=== PATIENT | male | born 1960 | race Caucasian/White ===

== ENCOUNTER 2019-04-07 12:23 | Emergency (ER) | payer BC, OTHER ==
[~2019-04-07] VITALS: Ht 182.9 cm; Wt 81.6 kg
[2019-04-07] MEDS ORDERED: ASPIRIN 81 MG CHEW (CHILDREN'S ASA) ONE (12:28)
[2019-04-07] MEDS ORDERED: NITROGLYCERIN 0.4 MG SL TABS BTL 25'S SL ONE (12:28)
--- NOTE | 2019-04-07 12:44 | ED Chest Pain ---
General Chief Complaint: Chest Pain Stated Complaint: CHEST PAIN Source: patient Exam Limitations: no limitations History of Present Illness Date Seen by Provider: Apr 07, 2019 Time Seen by Provider: 12:25 Initial Comments The patient presents by private conveyance to the ER with chief complaint he is having some chest pressure that he woke up with. 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 Carmichael on the . He says he still does not feel totally well and has had off-and-on pressure. He went back to the ER [facility] couple days ago and they told him that he was not having a heart attack and keep his follow-up appointment. He has some anxiety because his brother recently from a thoracic aortic aneurysm. He's been taking the Brilinta aspirin and other medications as prescribed. He has a history of high blood pressure, hyperlipidemia and quit smoking in the 90s. He does not use recreational drugs or other tobacco products. He quit drinking nearly 30 years ago. Pressure in his chest is mostly on the left breast. Not reproducible to direct palpation. No shortness of breath and cough history of lung disease fevers chills sweats nausea vomiting. He says is similar but not as intense as the pressure he experienced when he went in to [facility] and was subsequently given a stent. At that time the nitroglycerin did help his pressure. He has not taken any in the past week. Allergies and Home Medications Allergies Coded Allergies: doxycycline (Verified Allergy, Unknown, 04/07/19) Patient Home Medication List Home Medication List Reviewed: Yes Review of Systems Review of Systems Constitutional: No chills, No diaphoresis EENTM: No Blurred Vision, No Double Vision Respiratory: Denies Cough, Denies Shortness of Air Cardiovascular: See HPI, Chest Pain; Denies Edema, Denies Irregular Heart Rate, Denies Lightheadedness, Denies Palpitations, Denies Syncope Gastrointestinal: Denies Constipated, Denies Diarrhea, Denies Nausea Genitourinary: Denies Discharge, Denies Drainage Musculoskeletal: No back pain, No joint pain Past Neqfdul-Bseeby-Sozonh Hx Patient Social History Alcohol Use: Past History Recreational Drug Use: No Smoking Status: Former Smoker Type Used: Cigarettes Former Smoker, Quit: Mar 27, 1996 Recent Foreign Travel: No Contact w/Someone Who Travel: No Recent Hopitalizations: No Immunizations Up To Date Tetanus Booster (TDap): Unknown PED Vaccines UTD: Yes Seasonal Allergies Seasonal Allergies: No Past Medical History Surgeries: Yes Respiratory: No Cardiac: Yes Heart Attack, High Cholesterol, Hypertension Neurological: No Genitourinary: No Gastrointestinal: No Musculoskeletal: No Endocrine: Yes Hypothyroidsim HEENT: No Cancer: No Psychosocial: No Physical Exam Vital Signs Vital Signs - First Documented 04/07/19 12:25 Temp 98.2 Pulse 73 Resp 13 B/P (MAP) 140/105 (117) Pulse Ox 97 O2 Delivery Room Air Capillary Refill : Less Than 3 Seconds Height, Weight, BMI Height: '" Weight: lbs. oz. kg; BMI Method: General Appearance: WD/WN, Anxious HEENT: PERRL/EOMI, Pharynx Normal, Moist Mucous Membranes Neck: Full Range of Motion, Normal Inspection Respiratory: Chest Non Tender, Lungs Clear, Normal Breath Sounds, No Accessory Muscle Use, No Respiratory Distress Cardiovascular: Regular Rate, Rhythm, No Edema, Normal Peripheral Pulses Gastrointestinal: Normal Bowel Sounds, No Organomegaly, Non Tender, Soft Extremity: Normal Capillary Refill, Normal Inspection, No Pedal Edema Neurologic/Psychiatric: Alert, Oriented x3, No Motor/Sensory Deficits Skin: Normal Color, Warm/Dry Progress/Results/Core Measures Results/Orders Lab Results Laboratory Tests Test 04/07/19 12:30 04/07/19 15:28 Range/Units White Blood Count 7.3 4.3-11.0 10^3/uL Red Blood Count 5.21 4.35-5.85 10^6/uL Hemoglobin 15.0 13.3-17.7 G/DL Hematocrit 43 40-54 % Mean Corpuscular Volume 82 80-99 FL Mean Corpuscular Hemoglobin 29 25-34 PG Mean Corpuscular Hemoglobin Concent 35 32-36 G/DL Red Cell Distribution Width 13.5 10.0-14.5 % Platelet Count 243 130-400 10^3/uL Mean Platelet Volume 10.5 H 7.4-10.4 FL Neutrophils (%) (Auto) 66 42-75 % Lymphocytes (%) (Auto) 16 12-44 % Monocytes (%) (Auto) 10 0-12 % Eosinophils (%) (Auto) 7 0-10 % Basophils (%) (Auto) 1 0-10 % Neutrophils # (Auto) 4.9 1.8-7.8 X 10^3 Lymphocytes # (Auto) 1.2 1.0-4.0 X 10^3 Monocytes # (Auto) 0.7 0.0-1.0 X 10^3 Eosinophils # (Auto) 0.5 H 0.0-0.3 10^3/uL Basophils # (Auto) 0.1 0.0-0.1 10^3/uL Prothrombin Time 12.4 12.2-14.7 SEC INR Comment 0.9 0.8-1.4 Activated Partial Thromboplast Time 31 24-35 SEC Sodium Level 139 135-145 MMOL/L Potassium Level 4.4 3.6-5.0 MMOL/L Chloride Level 108 H 98-107 MMOL/L Carbon Dioxide Level 21 21-32 MMOL/L Anion Gap 10 5-14 MMOL/L Blood Urea Nitrogen 15 7-18 MG/DL Creatinine 0.87 0.60-1.30 MG/DL Estimat Glomerular Filtration Rate > 60 BUN/Creatinine Ratio 17 Glucose Level 97 70-105 MG/DL Calcium Level 9.7 8.5-10.1 MG/DL Corrected Calcium 9.3 8.5-10.1 MG/DL Magnesium Level 2.2 1.6-2.4 MG/DL Total Bilirubin 0.5 0.1-1.0 MG/DL Aspartate Amino Transf (AST/SGOT) 17 5-34 U/L Alanine Aminotransferase (ALT/SGPT) 23 0-55 U/L Alkaline Phosphatase 77 40-136 U/L Total Creatine Kinase 85 30-200 U/L Myoglobin 35.5 10.0-92.0 NG/ML Troponin I < 0.028 < 0.028 <0.028 NG/ML B-Type Natriuretic Peptide < 10.0 <100.0 PG/ML Total Protein 7.2 6.4-8.2 GM/DL Albumin 4.5 3.2-4.5 GM/DL My Orders Orders - NOLAN CHAMBERLAIN Continuous Ekg Monitoring (04/07/19 12:25) Ekg Tracing (04/07/19 12:25) Nitroglycerin 0.4 Mg Btl 25's (Nitrostat (04/07/19 12:28) Aspirin Chewable Tablet (Baby Aspirin Ch (04/07/19 12:28) Cbc With Automated Diff (04/07/19 12:40) Magnesium (04/07/19 12:40) Chest 1 View, Ap/Pa Only (04/07/19 12:40) Cardiac Profile 1 (04/07/19 12:40) Comprehensive Metabolic Panel (04/07/19 12:40) Myoglobin Serum (04/07/19 12:40) Protime With Inr (04/07/19 12:40) Partial Thromboplastin Time (04/07/19 12:40) O2 (04/07/19 12:40) Lipid Panel (04/08/19 06:00) Ed Iv/Invasive Line Start (04/07/19 12:40) BNP (04/07/19 12:40) Nitroglycerin 0.4 Mg Btl 25's (Nitrostat (04/07/19 12:45) Aspirin Chewable Tablet (Baby Aspirin Ch (04/07/19 12:45) Creatine Kinase (04/07/19 13:42) Ct Angio Chest W (04/07/19 14:07) Iohexol Injection (Omnipaque 350 Mg/Ml 1 (04/07/19 14:15) Received Contrast (Hold Metformin- Contr (04/07/19 14:15) Sodium Chloride Flush (Catheter Flush Sy (04/07/19 14:15) Ns (Ivpb) (Sodium Chloride 0.9% Ivpb Bag (04/07/19 14:15) Troponin I (04/07/19 15:20) Medications Given in ED Current Medications Medications Dose Ordered Sig/Danae Route Start Time Stop Time Status Last Admin Dose Admin Aspirin 243 mg ONCE ONCE PO 04/07/19 12:45 04/07/19 12:46 DC 04/07/19 12:45 243 MG Iohexol 100 ml ONCE ONCE IV 04/07/19 14:15 04/07/19 14:16 DC 04/07/19 14:40 85 ML Nitroglycerin 0.4 mg UD PRN SL 04/07/19 12:45 04/07/19 12:45 0.4 MG Sodium Chloride 10 ml NEEDED PRN IV 04/07/19 14:15 04/07/19 14:40 10 ML Sodium Chloride 100 ml ONCE ONCE IV 04/07/19 14:15 04/07/19 14:16 DC 04/07/19 14:40 80 ML Vital Signs/I&O 04/07/19 12:25 Temp 98.2 Pulse 73 Resp 13 B/P (MAP) 140/105 (117) Pulse Ox 97 O2 Delivery Room Air Progress Progress Note #1: Time: 12:44 Progress Note Aspirin, nitroglycerin, labs chest x-ray EKG. Dr. Martinez faxed over a note for cardiac catheterization 2 dated 04/01/19: Patient was single vessel coronary artery disease in the mid LAD involving the takeoff of the second diagonal branch. Treated with a drug eluding stent in high-pressure balloon inflation. Plan to continue dual antiplatelet therapy for one year for non-STEMI. Might consider the use of nitrates given vasospasm noted both on the radial artery and post intervention in the left anterior descending artery. Echocardiogram 03/31/[address] Martinez: Dilated aortic root 4.34 cm Normal ventricular function. Aortic regurgitation. Pulmonic and tricuspid regurgitation. Mild mitral regurgitation. Progress Note #2: Time: 13:59 Progress Note Initial troponin and BNP are negative. CPK pending. Consider possibility of a reaction to his Lipitor causing some muscle aches. Nontender and his thighs. Nitroglycerin did not help his chest pressure but it did bring his blood pr essure down low enough that we will not give him a second dose. Heart score 4 points. CPK is not elevated. He has a history of a dilated aortic root 4.34 cm on ultrasound. Plan to get a CT angiogram to rule out dissection. Progress Note #3: Time: 16:03 Progress Note No chest pressure at present. Delta troponin negative. Plan to follow up tomorrow at 11:[address] Carmichael in the clinic. Initial ECG Impression Date: Apr 07, 2019 Initial ECG Impression Time: 12:28 Initial ECG Rate: 66 Initial ECG Rhythm: Normal Sinus Initial ECG Intervals: Normal Initial ECG Impression: Normal, Nonspecific Changes Initial ECG Comparisson: No Previous ECG Available Comment Normal sinus rhythm with left ventricular hypertrophy. No clinically significant ST elevation or depression. Diagnostic Imaging Diagonstic Imaging: Xray Plain Films/CT/US/NM/MRI: chest (1v) Comments [facility] [place], [place] NAME: CLAUDIA MADDEN REC#: [id number] PT STATUS: REG ER : 1960 PHYSICIAN: NOLAN CHAMBERLAIN MD ADMIT DATE: 04/07/19/ER Draft Date of Exam:04/07/19 CHEST 1 VIEW, AP/PA ONLY INDICATION: Chest heaviness. History of recent cardiac stent placement. COMPARISON: None. FINDINGS: Single frontal view of the chest demonstrates normal heart size and pulmonary vascularity. The lungs are well aerated and clear. No large pleural effusion or pneumothorax is seen. The visualized osseous structures show no acute abnormalities. IMPRESSION: 1. No acute cardiopulmonary process. Dictated on workstation # [id number] Dict: 04/07/19 1301 Trans: 04/07/19 1304 [id number] Interpreted by: GABRIELE LIU MD Electronically signed by: Reviewed: Reviewed by Me Diagonstic Imaging: CT (angiogram) Plain Films/CT/US/NM/MRI: chest Comments NAME: CLAUDIA MADDEN [facility] REC#: [id number] PT STATUS: REG ER : 1960 PHYSICIAN: NOLAN CHAMBERLAIN MD ADMIT DATE: 04/07/19/ER Signed Date of Exam:04/07/19 CT ANGIO CHEST W PROCEDURE: CT angiography of the chest with contrast. TECHNIQUE: Multiple contiguous axial images were obtained through the chest after uneventful bolus administration of intravenous contrast. 3D reconstructed CTA MIP acquisitions were also performed. Auto Exposure Controls were utilized during the CT exam to meet ALARA standards for radiation dose reduction. INDICATION: Chest pain. FINDINGS: No comparison available. There is no pulmonary embolism. Heart size is normal. No pericardial effusion. Aorta is normal in caliber. There is no axillary, supraclavicular lymphadenopathy. Calcified mediastinal lymph nodes are in keeping with prior granulomatous infection. Limited views of the upper abdomen reveal a cyst in the left kidney. Extensive calcific granulomas in the lungs. No suspicious pulmonary nodules. No edema or pneumonia. No pleural effusion or pneumothorax. IMPRESSION: 1. No pulmonary embolism, clear lungs. Dictated by: Dictated on workstation # [id number] Dict: 04/07/19 1446 Trans: 04/07/19 1451 CVB [id number] Interpreted by: LUCILLE TINOCO MD Electronically signed by: LUCILLE TINOCO MD 04/07/19 1453 Reviewed: Reviewed by Me Consults : Consulting Physician: SAKINA YANCEY MD [facility] Consults Notes Discussed case lab EKG imaging and findings. Discuss the patient's desire not to stay in the hospital. If Delta troponin is negative and the patient is chest pain free then he would see the patient mom morning in the clinic. Departure Impression Primary Impression: Left chest pressure Disposition: HOME, SELF-CARE Condition: Stable Departure-Patient Inst. Decision time for Depature: 16:03 Referrals: DEBORAH CARMICHAEL MD Patient Instructions: Chest Pain (DC) Add. Discharge Instructions: Plan to follow up with Dr. Carmichael in the clinic at 11:20 AM tomorrow. If you have significant chest pain, shortness of breath or other worrisome symptoms return to the nearest ER. All discharge instructions reviewed with patient and/or family. Voiced understanding. Work/School Note: Work Release Form Date Seen in the Emergency Department: Apr 07, 2019 Return to Work: Apr 09, 2019 Restrictions: No Restrictions NOLAN CHAMBERLAIN Apr 07, 2019 12:44
[2019-04-07] MEDS ORDERED: NITROGLYCERIN 0.4 MG SL TABS BTL 25'S SL PRN (12:45)
[2019-04-07] MEDS ORDERED: ASPIRIN 81 MG CHEW (CHILDREN'S ASA) PO ONE (12:45)
[2019-04-07 12:51] LABS: BASOPHILS # (AUTO) 0.1 10^3/uL (0.0-0.1); BASOPHILS % (AUTO) 1 % (0-10); EOSINOPHILS # (AUTO) 0.5 10^3/uL (0.0-0.3); EOSINOPHILS % (AUTO) 7 % (0-10); HEMATOCRIT 43 % (40-54); LYMPHOCYTES # (AUTO) 1.2 X 10^3 (1.0-4.0); LYMPHOCYTES % (AUTO) 16 % (12-44); MEAN CORPUSCULAR HEMOGLOBIN 29 PG (25-34); MEAN CORPUSCULAR HGB CONC 35 G/DL (32-36); MEAN CORPUSCULAR VOLUME 82 FL (80-99); MEAN PLATELET VOLUME 10.5 FL (7.4-10.4); MONOCYTES # (AUTO) 0.7 X 10^3 (0.0-1.0); MONOCYTES % (AUTO) 10 % (0-12); NEUTROPHILS # (AUTO) 4.9 X 10^3 (1.8-7.8); NEUTROPHILS % (AUTO) 66 % (42-75); PLATELET COUNT 243 10^3/uL (130-400); RED CELL DISTRIBUTION WIDTH 13.5 % (10.0-14.5); WHITE BLOOD COUNT 7.3 10^3/uL (4.3-11.0)
[2019-04-07 12:56] LABS: INR 0.9 (0.8-1.4); PROTHROMBIN TIME PATIENT 12.4 SEC (12.2-14.7)
--- NOTE | 2019-04-07 13:05 | Diagnostic Imaging Report ---
INDICATION: Chest heaviness. History of recent cardiac stent placement. COMPARISON: None. FINDINGS: Single frontal view of the chest demonstrates normal heart size and pulmonary vascularity. The lungs are well aerated and clear. No large pleural effusion or pneumothorax is seen. The visualized osseous structures show no acute abnormalities. IMPRESSION: 1. No acute cardiopulmonary process. Dictated by: Dictated on workstation # [id number]
[2019-04-07 13:06] LABS: ALANINE AMINOTRANSFERASE 23 U/L (0-55); ALBUMIN 4.5 GM/DL (3.2-4.5); ALKALINE PHOSPHATASE 77 U/L (40-136); BILIRUBIN,TOTAL 0.5 MG/DL (0.1-1.0); BUN/CREATININE RATIO 17; CALCIUM 9.7 MG/DL (8.5-10.1); CARBON DIOXIDE 21 MMOL/L (21-32); CHLORIDE 108 MMOL/L (98-107); CREATININE SERUM 0.87 MG/DL (0.60-1.30); GFR ESTIMATED > 60; GLUCOSE 97 MG/DL (70-105); MAGNESIUM 2.2 MG/DL (1.6-2.4); POTASSIUM 4.4 MMOL/L (3.6-5.0); SODIUM 139 MMOL/L (135-145); TOTAL PROTEIN 7.2 GM/DL (6.4-8.2)
[2019-04-07] MEDS ORDERED: CATHETER FLUSH 10 ML SYR IV PRN (14:15)
[2019-04-07] MEDS ORDERED: HOLD METFORMIN - RECEIVED CONTRAST 20 ML VIAL IV SCH (14:15)
[2019-04-07] MEDS ORDERED: IOHEXOL 350 MG/ML 100 ML (OMNIPAQUE 350) VIAL IV ONE (14:15)
[2019-04-07] MEDS ORDERED: NS 100 ML (IVPB) BAG IV ONE (14:15)
--- NOTE | 2019-04-07 14:51 | Diagnostic Imaging Report ---
PROCEDURE: CT angiography of the chest with contrast. TECHNIQUE: Multiple contiguous axial images were obtained through the chest after uneventful bolus administration of intravenous contrast. 3D reconstructed CTA MIP acquisitions were also performed. Auto Exposure Controls were utilized during the CT exam to meet ALARA standards for radiation dose reduction. INDICATION: Chest pain. FINDINGS: No comparison available. There is no pulmonary embolism. Heart size is normal. No pericardial effusion. Aorta is normal in caliber. There is no axillary, supraclavicular lymphadenopathy. Calcified mediastinal lymph nodes are in keeping with prior granulomatous infection. Limited views of the upper abdomen reveal a cyst in the left kidney. Extensive calcific granulomas in the lungs. No suspicious pulmonary nodules. No edema or pneumonia. No pleural effusion or pneumothorax. IMPRESSION: 1. No pulmonary embolism, clear lungs. Dictated by: Dictated on workstation # [id number]
[2019-04-07 16:15] VITALS: BP 130/86
== END 2019-04-07 16:15 | disposition home or self-care (01) ==
LOC: EDUNIT# 12:23 → ER 12:25
DX: R07.89 Other chest pain (principal); I10 Essential (primary) hypertension; I25.2 Old myocardial infarction; E78.00 Pure hypercholesterolemia, unspecified; F41.9 Anxiety disorder, unspecified; E03.9 Hypothyroidism, unspecified; Z95.5 Presence of coronary angioplasty implant and graft; Z79.82 Long term (current) use of aspirin; Z87.891 Personal history of nicotine dependence; Z88.1 Allergy status to other antibiotic agents
CPT/HCPCS: 36415; 71045; 71275; 80053; 82550; 83735; 83874; 83880; 84484; 85025; 85610; 85730; 93005

== ENCOUNTER → 2019-05-14 | Outpatient (CLI) | payer BC ==
[~2019-05-14] MED LIST: CATHETER FLUSH 10 ML SYR IV PRN
[2019-05-14 09:13] VITALS: BP 125/88
[2019-05-14 09:24] VITALS: BP 171/83
--- NOTE | 2019-05-14 12:29 | STRESS TEST ---
DATE OF SERVICE: 05/14/2019 EXERCISE MYOVIEW STRESS TEST REPORT Baseline heart rate is 57, baseline blood pressure 131/84. Baseline EKG is sinus rhythm with no ischemic changes. In summary, the patient was injected with 10.82 mCi of technetium-99 Myoview and the resting images were obtained. Then, the patient started exercising with a baseline heart rate, blood pressure and EKG mentioned above, was able to exercise for a total of 8 minutes 30 seconds on standard Nagi protocol, achieving maximum heart rate of 138. With peak exercise level, EKG was showing minimal nondiagnostic changes. The patient was injected with 30.1 mCi of technetium-99 Myoview. Throughout the test, there was no significant abnormality. During recovery, heart rate and blood pressure returned to baseline. The resting and stress images were reviewed and compared in the short axis, horizontal long axis, and vertical long axis views. Review of the images showed typical male pattern with no significant ischemia or infarction on SPECT images. SSS 0. TID value 0.92. On the gated images, the left ventricle appeared to be normal size with normal contractility. Calculated ejection fraction 53%. CONCLUSION: 1. Good exercise tolerance, a total of 8 minutes 30 seconds on standard Nagi protocol, total of 10.3 METS achieving 85% of maximum expected heart rate. 2. Appropriate heart rate and blood pressure response to exercise returned to baseline during recovery. 3. Minimal nondiagnostic EKG changes with exercise returned to baseline during recovery. 4. Typical male pattern with no significant ischemia or infarction on SPECT images. 5. Normal left ventricular size with normal contractility. Calculated ejection fraction 53%. Job ID: [id number] DocumentID: [id number] Dictated Date: 05/14/2019 11:45:37 Felled Seam Operator Date: 05/14/2019 12:29:20 Dictated By: DEBORAH BOURGEOIS MD
== END ==
LOC: CARD 07:01
PROVIDERS: ATTEND Physician Assistant
DX: I25.10 Atherosclerotic heart disease of native coronary artery without angina pectoris (principal); I77.819 Aortic ectasia, unspecified site; I25.2 Old myocardial infarction; I37.1 Nonrheumatic pulmonary valve insufficiency
CPT/HCPCS: 78452; 93017

== ENCOUNTER → 2020-03-15 | Outpatient (CLI) | payer BC | LOC: CARD 09:00 | PROVIDERS: ATTEND Internal Medicine Cardiovascular Disease | DX: I08.1 Rheumatic disorders of both mitral and tricuspid valves (principal); I25.10 Atherosclerotic heart disease of native coronary artery without angina pectoris | CPT/HCPCS: 93306 ==

== ENCOUNTER 2022-04-07 15:56 | Observation (INO) | payer BC ==
[~2022-04-07] VITALS: Ht 182 cm; Wt 93.0 kg
[2022-04-07 16:14] LABS: BASOPHILS # (AUTO) 0.1 10^3/uL (0.0-0.1); BASOPHILS % (AUTO) 1 % (0-10); EOSINOPHILS # (AUTO) 0.3 10^3/uL (0.0-0.3); EOSINOPHILS % (AUTO) 2 % (0-10); HEMATOCRIT 42 % (40-54); HEMOGLOBIN 14.8 g/dL (13.3-17.7); LYMPHOCYTES # (AUTO) 1.3 10^3/uL (1.0-4.0); LYMPHOCYTES % (AUTO) 9 % (12-44); MEAN CORPUSCULAR HEMOGLOBIN 29 pg (25-34); MEAN CORPUSCULAR HGB CONC 36 g/dL (32-36); MEAN CORPUSCULAR VOLUME 83 fL (80-99); MEAN PLATELET VOLUME 9.9 fL (9.0-12.2); MONOCYTES # (AUTO) 1.1 10^3/uL (0.0-1.0); MONOCYTES % (AUTO) 8 % (0-12); NEUTROPHILS # (AUTO) 11.3 10^3/uL (1.8-7.8); NEUTROPHILS % (AUTO) 80 % (42-75); PLATELET COUNT 214 10^3/uL (130-400); WHITE BLOOD COUNT 14.1 10^3/uL (4.3-11.0)
[2022-04-07 16:26] LABS: ALBUMIN 4.5 GM/DL (3.2-4.5); POTASSIUM 4.4 MMOL/L (3.6-5.0)
[2022-04-07 16:27] LABS: CALCIUM 9.8 MG/DL (8.5-10.1)
[2022-04-07 16:29] LABS: TOTAL PROTEIN 7.2 GM/DL (6.4-8.2)
[2022-04-07 16:30] LABS: BILIRUBIN,TOTAL 1.2 MG/DL (0.1-1.0)
--- NOTE | 2022-04-07 16:31 | Diagnostic Imaging Report ---
EXAMINATION: Chest, one view. HISTORY: Chest pain. COMPARISON: 04/07/2019. FINDINGS: The lung volumes are normal. No focal consolidation is seen. No large pleural effusion or pneumothorax is seen. The cardiomediastinal silhouette is normal in size and contour. No acute osseous abnormality is seen. IMPRESSION: 1. No acute pleural-parenchymal process. Dictated by: Dictated on workstation # [id number]
[2022-04-07 16:32] LABS: CREATININE SERUM 1.42 MG/DL (0.60-1.30)
[2022-04-07 16:33] LABS: PROTHROMBIN TIME PATIENT 13.3 SEC (12.2-14.7)
[2022-04-07 16:35] LABS: MAGNESIUM 2.2 MG/DL (1.6-2.4)
[2022-04-07 16:56] LABS: BASOPHILS % (MANUAL) 1 %; LYMPHOCYTES % (MANUAL) 6 %; MONOCYTES % (MANUAL) 7 %; NEUTROPHILS % (MANUAL) 86 %; RBC MORPH NORMAL
[2022-04-07] MEDS ORDERED: ASPIRIN 81 MG CHEW (CHILDREN'S ASA) PO ONE (17:15)
--- NOTE | 2022-04-07 19:11 | ED Chest Pain ---
General Chief Complaint: Chest Pain Stated Complaint: CHEST DISCOMFORT Source: patient Exam Limitations: no limitations History of Present Illness Date Seen by Provider: Apr 07, 2022 Time Seen by Provider: 16:06 Initial Comments This 61-year-old gentleman presents to the emergency room with complaints of a heaviness on his chest. 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 He developed a pain in his back, between his shoulder blades, and a heaviness on his chest. He became lightheaded and dizzy upon rising at that time after he tried to rest. His chest continued to feel heavy on the way here. Pain was 6/10 at its worst and is now 4 out of 10. He has history of stent placement in 2019. A subsequent stress test was negative. Vital signs are stable. He has taken aspirin 162 mg. Nitroglycerin is not being given at this time due to blood pressure of only 110s. Dr. Carmichael is his primary bingo checker. His primary care provider is Dr. Henriquez at the [facility] in [place], [place]. Patient is used to difficult labor and harsh conditions, but this event frightened him. Allergies and Home Medications Allergies Coded Allergies: doxycycline (Verified Allergy, Unknown, 04/07/19) Patient Home Medication List Home Medication List Reviewed: Yes Review of Systems Review of Systems Constitutional: see HPI, diaphoresis, dizziness, weakness EENTM: No Symptoms Reported Respiratory: No Symptoms Reported Cardiovascular: See HPI Gastrointestinal: Nausea Genitourinary: No Symptoms Reported Musculoskeletal: no symptoms reported Skin: no symptoms reported Psychiatric/Neurological: See HPI Endocrine: No Symptoms Reported Hematologic/Lymphatic: No Symptoms Reported Past Nrwrolp-Mqtiot-Lxqlil Hx Patient Social History Tobacco Use?: No Use of E-Cig and/or Vaping dev: No Substance use?: No Alcohol Use?: No Immunizations Up To Date Tetanus Booster (TDap): Unknown PED Vaccines UTD: Yes Seasonal Allergies Seasonal Allergies: No Past Medical History Surgeries: Yes Coronary Stent Respiratory: No Cardiac: Yes Coronary Artery Disease, Heart Attack, High Cholesterol, Hypertension Neurological: No Genitourinary: No Gastrointestinal: No Musculoskeletal: No Endocrine: Yes Hypothyroidsim HEENT: No Cancer: No Psychosocial: No Integumentary: No Physical Exam Vital Signs Vital Signs - First Documented 04/07/22 15:58 Pulse 78 Resp 13 B/P (MAP) 129/77 (94) Pulse Ox 95 O2 Delivery Room Air Capillary Refill : Height, Weight, BMI Height: 6'0" Weight: 180lbs. oz. 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 Norm as Tested Skin: Normal Color, Warm/Dry Progress/Results/Core Measures Results/Orders Lab Results Laboratory Tests Test 04/07/22 16:04 04/07/22 18:20 Range/Units White Blood Count 14.1 H 4.3-11.0 10^3/uL Red Blood Count 5.03 4.30-5.52 10^6/uL Hemoglobin 14.8 13.3-17.7 g/dL Hematocrit 42 40-54 % Mean Corpuscular Volume 83 80-99 fL Mean Corpuscular Hemoglobin 29 25-34 pg Mean Corpuscular Hemoglobin Concent 36 32-36 g/dL Red Cell Distribution Width 12.8 10.0-14.5 % Platelet Count 214 130-400 10^3/uL Mean Platelet Volume 9.9 9.0-12.2 fL Immature Granulocyte % (Auto) 1 % Neutrophils (%) (Auto) 80 H 42-75 % Lymphocytes (%) (Auto) 9 L 12-44 % Monocytes (%) (Auto) 8 0-12 % Eosinophils (%) (Auto) 2 0-10 % Basophils (%) (Auto) 1 0-10 % Neutrophils # (Auto) 11.3 H 1.8-7.8 10^3/uL Lymphocytes # (Auto) 1.3 1.0-4.0 10^3/uL Monocytes # (Auto) 1.1 H 0.0-1.0 10^3/uL Eosinophils # (Auto) 0.3 0.0-0.3 10^3/uL Basophils # (Auto) 0.1 0.0-0.1 10^3/uL Immature Granulocyte # (Auto) 0.1 0.0-0.1 10^3/uL Neutrophils % (Manual) 86 % Lymphocytes % (Manual) 6 % Monocytes % (Manual) 7 % Basophils % (Manual) 1 % Blood Morphology Comment NORMAL Prothrombin Time 13.3 12.2-14.7 SEC INR Comment 1.0 0.8-1.4 Activated Partial Thromboplast Time 29 24-35 SEC Sodium Level 138 135-145 MMOL/L Potassium Level 4.4 3.6-5.0 MMOL/L Chloride Level 108 H 98-107 MMOL/L Carbon Dioxide Level 20 L 21-32 MMOL/L Anion Gap 10 5-14 MMOL/L Blood Urea Nitrogen 16 7-18 MG/DL Creatinine 1.42 H 0.60-1.30 MG/DL Estimat Glomerular Filtration Rate 57 BUN/Creatinine Ratio 11 Glucose Level 99 70-105 MG/DL Calcium Level 9.8 8.5-10.1 MG/DL Corrected Calcium 9.4 8.5-10.1 MG/DL Magnesium Level 2.2 1.6-2.4 MG/DL Total Bilirubin 1.2 H 0.1-1.0 MG/DL Aspartate Amino Transf (AST/SGOT) 26 5-34 U/L Alanine Aminotransferase (ALT/SGPT) 34 0-55 U/L Alkaline Phosphatase 89 40-136 U/L Myoglobin 181.8 H 10.0-92.0 NG/ML Troponin I < 0.028 < 0.028 <0.028 NG/ML Total Protein 7.2 6.4-8.2 GM/DL Albumin 4.5 3.2-4.5 GM/DL My Orders Orders - ELENO HARRELL MD Ekg Tracing (04/07/22 16:06) Cbc With Automated Diff (04/07/22 16:07) Magnesium (04/07/22 16:07) Chest 1 View, Ap/Pa Only (04/07/22 16:07) Comprehensive Metabolic Panel (04/07/22 16:07) Myoglobin Serum (04/07/22 16:07) Protime With Inr (04/07/22 16:07) Partial Thromboplastin Time (04/07/22 16:07) O2 (04/07/22 16:07) Monitor-Rhythm Ecg Trace Only (04/07/22 16:07) Lipid Panel (04/08/22 06:00) Ed Iv/Invasive Line Start (04/07/22 16:07) Troponin I [place] (04/07/22 16:07) Manual Differential (04/07/22 16:04) Aspirin Chewable Tablet (Baby Aspirin Ch (04/07/22 17:15) Troponin I [place] (04/07/22 17:01) Ekg Tracing (04/07/22 19:01) Code/Resuscitation (04/07/22 19:46) Medications Given in ED Current Medications Medications Dose Ordered Sig/Danae Route Start Time Stop Time Status Last Admin Dose Admin Aspirin 162 mg ONCE ONCE PO 04/07/22 17:15 04/07/22 17:16 DC 04/07/22 17:40 162 MG Vital Signs/I&O 04/07/22 15:58 Pulse 78 Resp 13 B/P (MAP) 129/77 (94) Pulse Ox 95 O2 Delivery Room Air Blood Pressure Mean: 94 Progress Progress Note : Time: 19:07 Progress Note Patient had taken aspirin 162 mg at home. We gave him an additional 162 mg. Nitroglycerin was not administered as his blood pressure was marginal initially. He received a liter of IV fluid. Initial work-up was negative for ischemic ST changes or elevated troponin. Repeat after 2 hours is pending. Patient reports his chest heaviness completely resolved. Review of chart reveals a negative stress test with Dr. Carmichael in 2019. EKG #1: EKG Time: 16:07 Rate: 74 Rhythm: Normal Sinus Comment Sinus rhythm with no ST elevation or depression. Right bundle branch block. No axis deviation. EKG #2: EKG Time: 19:14 Rate: 64 Rhythm: Normal Sinus Comment Normal sinus rhythm with no ST elevation or depression. Right bundle branch block. No axis deviation. Unchanged from earlier today Diagnostic Imaging Diagonstic Imaging: Xray Plain Films/CT/US/NM/MRI: chest Comments NAME: CLAUDIA MADDEN [facility] REC#: [id number] PT STATUS: REG ER : 1960 PHYSICIAN: ELENO HARRELL MD ADMIT DATE: 04/07/22/ER Signed Date of Exam:04/07/22 CHEST 1 VIEW, AP/PA ONLY EXAMINATION: Chest, one view. HISTORY: Chest pain. COMPARISON: 04/07/2019. FINDINGS: The lung volumes are normal. No focal consolidation is seen. No large pleural effusion or pneumothorax is seen. The cardiomediastinal silhouette is normal in size and contour. No acute osseous abnormality is seen. IMPRESSION: 1. No acute pleural-parenchymal process. Dictated by: Dictated on workstation # [id number] Dict: 04/07/22 1629 Trans: 04/07/22 1644 [id number] Interpreted by: MARINA LEE DO Electronically signed by: MARINA LEE DO 04/07/22 1644 Departure Communication (Admissions) Time/Spoke to Admitting Phy: 19:45 Dr. Wright Time/Spoke to Consulting Phy: 19:40 Dr. Stoll Impression Primary Impression: Chest pain Qualified Codes: R07.9 - Chest pain, unspecified Disposition: HOME, SELF-CARE Condition: Improved Admissions Decision to Admit Reason: Admit from ER (General) Decision to Admit/Date: Apr 07, 2022 Time/Decision to Admit Time: 19:40 Departure-Patient Inst. Decision time for Depature: 19:09 Referrals: NO,LOCAL PHYSICIAN (PCP/Family) Primary Care Physician Patient Instructions: Chest Pain (DC) Add. Discharge Instructions: Continue taking aspirin daily. Please follow-up with Dr. Carmichael as soon as possible. Call his office first thing on Sunday morning. Drink plenty of clear liquids to stay well-hydrated. Avoid unnecessary strenuous exercise until you see Dr. Carmichael, especially in the heat. If any activity causes your chest pain to worsen or causes other symptoms such as lightheadedness or shortness of breath, stop that activity and rest. If your symptoms do not resolve promptly, return to the emergency room. All discharge instructions reviewed with patient and/or family. Voiced u nderstanding. Copy Copies To 1: DEBORAH CARMICHAEL MD, JOSHUA T MD Apr 07, 2022 19:11
[2022-04-07 21:08] VITALS: BP 121/85
[2022-04-07 21:25] VITALS: BP 169/96
[2022-04-07 21:40] VITALS: BP 139/89
[2022-04-07] MEDS ORDERED: ONDANSETRON 4 MG/2 ML (SDV) Z0FRAN IVP PRN (21:45)
[2022-04-07] MEDS ORDERED: NITROGLYCERIN 0.4 MG SL TABS BTL 25'S SL PRN (21:45)
[2022-04-07] MEDS ORDERED: morphine INJ 4 MG/ML 1 ML (VIAL/SYRINGE) IV PRN (21:45)
[2022-04-07 22:05] VITALS: BP 143/88
[2022-04-07 23:00] VITALS: BP 118/74
[2022-04-08] VITALS: BP 125/76
[2022-04-08] MEDS ORDERED: CARV6.252 PO (00:19)
[2022-04-08] MEDS ORDERED: ASPI-999 PO (00:19)
[2022-04-08] MEDS ORDERED: LEVO175C2 PO (00:19)
[2022-04-08] MEDS ORDERED: EZET10TA49 PO (00:19)
[2022-04-08] MEDS ORDERED: ISOS30TA82 PO (00:19)
[2022-04-08] MEDS ORDERED: LOSARTAN PO (00:19)
[2022-04-08] MEDS ORDERED: ATOR40TA70 PO (00:19)
[2022-04-08] MEDS ORDERED: LEVO100C4 PO (00:19)
[2022-04-08] MEDS ORDERED: TMSL.4C PO (00:19)
[2022-04-08 04:00] VITALS: BP 130/74
[2022-04-08 06:30] LABS: CHLORIDE 108 MMOL/L (98-107); SODIUM 140 MMOL/L (135-145)
[2022-04-08 06:31] LABS: CALCIUM 9.2 MG/DL (8.5-10.1); GLUCOSE 100 MG/DL (70-105)
[2022-04-08 06:33] LABS: CARBON DIOXIDE 19 MMOL/L (21-32); TRIGLYCERIDES 102 MG/DL (<150); VLDL CHOLESTEROL 20 MG/DL (5-40)
[2022-04-08 06:35] LABS: CREATININE SERUM 0.95 MG/DL (0.60-1.30); GFR ESTIMATED 92
[2022-04-08 06:36] LABS: BUN/CREATININE RATIO 17
[2022-04-08 06:37] LABS: CHOLESTEROL 120 MG/DL (< 200)
[2022-04-08 06:38] LABS: HDL CHOLESTEROL 35 MG/DL (40-60)
[2022-04-08 07:59] VITALS: BP 128/79
[2022-04-08] MEDS ORDERED: ASPIRIN E.C. 81 MG (ECOTRIN) TAB PO SCH (09:00)
[2022-04-08 11:32] VITALS: BP 128/74
--- NOTE | 2022-04-08 13:11 | Consultation-Cardiology ---
HPI-Cardiology Cardiology Consultation: Date of Consultation 04/08/22 Time Seen by a Provider: 11:30 Date of Admission Attending Physician Davina,Local Physician Admitting Physician Admitting Physician: uEfemia Wright MD Attending Physician: Eufemia Wright MD Consulting Physician SAKINA YANCEY MD, MA, FACP, FACC, [facility], CCDS Primary optical laboratory technician: Dr Carmichael HPI: Chief Complaint: Upper back discomfort 61 yo man with h/o CAD who had upper back discomfort while at work. It was mod to severe and it scared him. It resolved over a course of about 30 min. He came to ER and was hospitalized for observation. He has been feeling well during the hospitalization. He has not had any recurrence of symptoms. The symptoms yesterday had never been experienced before. They were not associated with palp or diaphoresis or other symptoms. Currently he feels well and wishes to home. He denies any shortness of breath or swelling Review of Systems-Cardiology Review of Systems Constitutional: No lightheadedness, No tiredness, No weight loss, No weight gain Eyes: No vision change Ears/Nose/Throat: No ear discharge, No nasal drainage, No recent hearing loss Respiratory: As described under HPI Cardiovascular: As described under HPI Gastrointestinal: No diarrhea, No nausea, No vomiting Genitourinary: No dysuria, No hematuria, No urine frequency changes Musculoskeletal: As describe under HPI; No joint pain Skin: No rash, No ulcerations Psychiatric/Neurological: No seizure, No focal weakness, No syncope Hematologic: No bleeding abnormalities LOF-Ueooea-Adgxit Hx Patient Social History Smoking Status: Never a Smoker Have you traveled recently?: No Alcohol Use?: No Pt feels they are or have been: No Immunizations Up To Date Tetanus Booster (TDap): Unknown Past Medical History PMH As described under Assessment. Family Medical History Family Medical History: Has fam h/o CAD but does not report details Allergies and Home Medications Allergies Coded Allergies: doxycycline (Verified Allergy, Unknown, 04/07/19) Patient Home Medication List Home Medication List Reviewed: Yes Aspirin (Aspirin) 81 Mg Tab.chew, 81 MG PO DAILY, (Reported) Entered as Reported by: ABRIL CHANEY on 04/08/22 0019 Last Action: New Order Atorvastatin Calcium (Atorvastatin Calcium) 40 Mg Tablet, 40 MG PO DAILY, (Reported) Entered as Reported by: ABRIL CHANEY on 04/08/2218 Last Action: New Order Carvedilol (Carvedilol) 6.25 Mg Tablet, 6.25 MG PO BID, (Reported) Entered as Reported by: ABRIL CHANEY on 04/08/2218 Last Action: New Order Ezetimibe (Ezetimibe) 10 Mg Tablet, 10 MG PO DAILY, (Reported) Entered as Reported by: ABRIL CHANEY on 04/08/2218 Last Action: New Order Isosorbide Mononitrate (Isosorbide Mononitrate ER) 30 Mg Tab.er.24h, 30 MG PO DAILY, (Reported) Entered as Reported by: ABRIL CHANEY on 04/08/2218 Last Action: New Order Levothyroxine Sodium (Levothyroxine) 175 Mcg Capsule, 175 MCG PO, (Reported) Entered as Reported by: ABRIL CHANEY on 04/08/2218 Last Action: New Order Levothyroxine Sodium (Levothyroxine) 100 Mcg Capsule, 100 MCG PO UD, (Reported) Entered as Reported by: ABRIL CHANEY on 04/08/2218 Last Action: New Order Tamsulosin HCl (Flomax) 0.4 Mg Cap, 0.4 MG PO BID, (Reported) Entered as Reported by: ABRIL CHANEY on 04/08/2218 Last Action: New Order [Losartan] , 50 MG PO DAILY, (Reported) Entered as Reported by: ABRIL CHANEY on 04/08/2218 Last Action: New Order Physical Exam-Cardiology Physical Exam Vital Signs/I&O 04/08/22 04/08/22 04/08/22 04/08/22 04:00 07:00 07:59 08:00 Temp 36.3 36.7 Pulse 64 64 76 Resp 16 16 B/P (MAP) 130/74 (92) 128/79 (95) Pulse Ox 97 95 O2 Delivery Room Air Room Air Room Air 04/08/22 11:32 Temp 36.5 Pulse 60 Resp 16 B/P (MAP) 128/74 (92) Pulse Ox 95 O2 Delivery Room Air 04/08/22 00:00 Intake Total 0 ml Balance 0 ml Capillary Refill : Constitutional: AAO x 3, well-developed, well-nourished HEENT: EOMI, hearing is well preserved, oral hygience is good Neck: No non-tender; carotid pulses are 2 + bilaterally, with good upstrokes Respiratory: No accessory muscle use, No rhonchi, No rales; other (good, bilat air entry) Cardiovascular: regular rate-rhythm, S1 and S2, systolic murmur (soft SHARIFA at card base) Gastrointestinal: No tender; soft; No guarding, No rebound; audible bowel sounds Extremities: No clubbing, No cyanosis, No significant edema Neurologic/Psychiatric: other (moves all limbs equally) Skin: No rash on exposed areas, No ulcerations on exposed areas Data Review Labs Laboratory Tests 04/07/22 16:04: White Blood Count 14.1H, Red Blood Count 5.03, Hemoglobin 14.8, Hematocrit 42, Mean Corpuscular Volume 83, Mean Corpuscular Hemoglobin 29, Mean Corpuscular Hemoglobin Concent 36, Red Cell Distribution Width 12.8, Platelet Count 214, Mean Platelet Volume 9.9, Immature Granulocyte % (Auto) 1, Neutrophils (%) (Auto) 80H, Lymphocytes (%) (Auto) 9L, Monocytes (%) (Auto) 8, Eosinophils (%) (Auto) 2, Basophils (%) (Auto) 1, Neutrophils # (Auto) 11.3H, Lymphocytes # (Auto) 1.3, Monocytes # (Auto) 1.1H, Eosinophils # (Auto) 0.3, Basophils # (Auto) 0.1, Immature Granulocyte # (Auto) 0.1, Neutrophils % (Manual) 86, Lymphocytes % (Manual) 6, Monocytes % (Manual) 7, Basophils % (Manual) 1, Blood Morphology Comment NORMAL, Prothrombin Time 13.3, INR Comment 1.0, Activated Partial Thromboplast Time 29, Sodium Level 138, Potassium Level 4.4, Chloride Level 108H, Carbon Dioxide Level 20L, Anion Gap 10, Blood Urea Nitrogen 16, Creatinine 1.42H, Estimat Glomerular Filtration Rate 57, BUN/Creatinine Ratio 11, Glucose Level 99, Calcium Level 9.8, Corrected Calcium 9.4, Magnesium Level 2.2, Total Bilirubin 1.2H, Aspartate Amino Transf (AST/SGOT) 26, Alanine Aminotransferase (ALT/SGPT) 34, Alkaline Phosphatase 89, Myoglobin 181.8H, Troponin I < 0.028, Total Protein 7.2, Albumin 4.5 04/07/22 18:20: Troponin I < 0.028 04/08/22 06:05: Sodium Level 140, Potassium Level 4.0, Chloride Level 108H, Carbon Dioxide Level 19L, Anion Gap 13, Blood Urea Nitrogen 16, Creatinine 0.95, Estimat Glomerular Filtration Rate 92, BUN/Creatinine Ratio 17, Glucose Level 100, Calcium Level 9.2, Troponin I < 0.028, Triglycerides Level 102, Cholesterol Level 120, LDL Cholesterol Direct 73, VLDL Cholesterol 20, HDL Cholesterol 35L Laboratory Tests 04/07/22 16:04 04/08/22 06:05 A/P-Cardiology Assessment/Admission Diagnosis Chest discomfort of undetermined etiology. No evidence of ACS. No recurrence of symptoms CAD. - Cath by Dr. Chen on April 01, 2019: intervention to the mid LAD bifurcation, had [place] stent 2.0 x 15 mm in the LAD and balloon angioplasty th rough the stent to the second diagonal branch. Had 20 percent stenosis in the circumflex artery and 20 percent stenosis in the right coronary artery. - Stress test May 2019 showing good exercise tolerance for 8 minutes 30 seconds on standard Nagi protocol with typical male pattern and no significant ischemia or infarction, stress score is 0, EF 53 percent Hypertension, controlled on current regimen Hyperlipidemia - treated with statin and monitored by Dr Carmichael Echocardiogram done in 2018 reported dilated aortic root and possible bicuspid aortic valve. Aortic regurgitation. Repeat echo done Mar 2020 showing trileaflet aortic valve and no aortic root dilatation. H/o mild carotid arterial disease per carotid duplex done in February 2020 Ex-tobaccoism, stopped smoking 1994. Discussion and Recomendations * Continue ASA, statin, beta-corry * Ok to d/c * Advised f/u with Dr Carmichael within 2 weeks * Advised to return to ER in case of recurrence of symptoms or new symptoms * He understands all of the above Clinical Quality Measures AMI/AHF: ASA po Prior to arrival: SAKINA Dominique MD FACP FAC CCDS Apr 08, 2022 13:10
--- NOTE | 2022-04-08 17:50 | Short Stay Summary-Hospitalist ---
History of Present Illness HPI/Chief Complaint Kilo Rowan is a 61 year old male with PMH HTN, HLD, CAD, BPH, hypothyroidism, who presented with chest pain. 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 He was working on a deck yesterday, not doing anything extraordinarily strenuous, and he began having chest pressure. He had pain in his back as well. He denies shortness of breath. He denies nausea and vomiting. He denies diaphoresis. He says he felt like he did in the past when he ended up getting a stent. He follows with Dr. Carmichael. He does not have a follow up scheduled for some time. He has not had a stress test since 2019. His chest pain resolved without intervention shortly after arrival and has not recurred. Source: patient Exam Limitations: no limitations Date Seen 04/08/22 Time Seen by a Provider: 11:10 Attending Physician No,Local Physician PCP Admitting Physician: Dilshad Wright MD Attending Physician: Dilshad Wright MD Referring Physician Date of Admission Apr 07, 2022 at 19:49 Home Medications & Allergies Home Medications Reviewed patient Home Medication Reconciliation performed by pharmacy medication reconciliations natural gas plant technician and/or nursing. Patients Allergies have been reviewed. Allergies Allergies Coded Allergies doxycycline (Verified Allergy, Unknown, 04/07/19) Past Nczgolp-Wkpqbl-Tvtald Hx Patient Social History Tobacco Use?: No Smoking Status: Never a Smoker Use of E-Cig and/or Vaping dev: No Substance use?: No Alcohol Use?: No Pt feels they are or have been: No Immunizations Up To Date First/Initial COVID19 Vaccinat: 2020 Second COVID19 Vaccination Stalin: 2020 Tetanus Booster (TDap): Unknown PED Vaccines UTD: Yes Seasonal Allergies Seasonal Allergies: No Current Status Advance Directives: No Communicates: Verbally Primary Language: Somali Preferred Spoken Language: Somali Is interpretation needed?: No Past Medical History Surgeries: Coronary Stent Coronary Artery Disease, Heart Attack, High Cholesterol, Hypertension Hypothyroidsim Family Medical History No Pertinent Family Hx Review of Systems Constitutional: no symptoms reported EENTM: no symptoms reported Respiratory: no symptoms reported Cardiovascular: chest pain Gastrointestinal: no symptoms reported Genitourinary: no symptoms reported Physical Exam Physical Exam Vital Signs Vital Signs - First Documented 04/07/22 04/07/22 15:58 21:08 Temp 36.2 Pulse 78 Resp 13 B/P (MAP) 129/77 (94) Pulse Ox 95 O2 Delivery Room Air Capillary Refill : Height, Weight, BMI Height: 6'0" Weight: 180lbs. oz. 81.891492yv; 28.07 BMI Method:Stated General Appearance: No Apparent Distress, WD/WN HEENT: PERRL/EOMI, Pharynx Normal Neck: Normal Inspection, Supple; No JVD Respiratory: Chest Non Tender, Lungs Clear, Normal Breath Sounds, No Respiratory Distress Cardiovascular: Regular Rate, Rhythm, No Edema, No Murmur Gastrointestinal: Normal Bowel Sounds, Non Tender, Soft Extremity: Normal Inspection, Non Tender, No Pedal Edema Neurologic/Psychiatric: Alert, Oriented x3, No Motor/Sensory Deficits, Normal Mood/Affect Skin: Normal Color, Warm/Dry Results Results/Procedures Labs Laboratory Tests 04/07/22 16:04 04/08/22 06:05 Patient resulted labs reviewed. Imaging: Reviewed Imaging Report Short Stay Diagnosis Discharge Diagnosis-Short Stay Admission Diagnosis Chest pain Final Discharge Diagnosis Chest pain Conclusion Plan Chest pain HTN HLD CAD Troponin remained normal EKG unremarkable, right bundle branch block Chest pain resolved without intervention Cardiology consulted Continue ASA, statin, beta corry Follow up with Dr. Carmichael in about two weeks Return with worsening symptoms Diagnosis/Problems Diagnosis/Problems (1) Chest pain Status: Acute Qualifiers: Qualified Codes: R07.9 - Chest pain, unspecified (2) CAD (coronary artery disease) Status: Chronic (3) HTN (hypertension) Status: Chronic (4) HLD (hyperlipidemia) Status: Chronic Clinical Quality Measures AMI/AHF: ASA po Prior to arrival: DILSHAD Olson MD Apr 08, 2022 17:50
== END 2022-04-08 11:32 | disposition home or self-care (01) ==
LOC: EDUNIT# 15:56 → ER 15:58 → 4TH 19:14 → UNDOADMOB 19:49 → 4TH 21:00 → UNDOADMOB 21:00 → UNDODISOB 04-08 11:32
PROVIDERS: ADMIT Internal Medicine; ATTEND Internal Medicine
DX: R07.9 Chest pain, unspecified (principal); I25.10 Atherosclerotic heart disease of native coronary artery without angina pectoris; I10 Essential (primary) hypertension; E78.5 Hyperlipidemia, unspecified; I65.29 Occlusion and stenosis of unspecified carotid artery; Z87.891 Personal history of nicotine dependence; Z79.899 Other long term (current) drug therapy
CPT/HCPCS: 71045; 80048; 80053; 80061; 83735; 83874; 84484 ×2; 85007; 85027; 85610; 85730; 93005 ×2; 93041; 99284; G0378; 36415

== ENCOUNTER → 2022-05-29 | Outpatient (CLI) | payer BC ==
[~2022-05-29] MED LIST changes: +ASPI-999 PO; +ATOR40TA70 PO; +CARV6.252 PO; -CATHETER FLUSH 10 ML SYR IV PRN; +CATHETER FLUSH 10 ML SYR IVP PRN; +EZET10TA49 PO; +ISOS30TA82 PO; +LEVO100C4 PO; +LEVO175C2 PO; +LOSARTAN PO; +TMSL.4C PO
[2022-05-29 09:39] VITALS: BP 131/88
--- NOTE | 2022-05-29 12:19 | Cardiology Stress Test Report ---
Stress Test Report Date of Procedure/Referring: Date of Procedure: May 29, 2022 PCP No,Local Physician Admitting Physician Admitting Physician: Attending Physician: Nuvia Claire Baseline Heart Rate: 58 Baseline Blood Pressure: Blood Pressure Systolic: 131 Blood Pressure Diastolic: 88 Vital Signs Date Time Temp Pulse Resp B/P (MAP) Pulse Ox O2 Delivery O2 Flow Rate FiO2 05/29/22 09:39 66 131/88 (102) Baseline Vital Signs Vital Signs Date Time Temp Pulse Resp B/P (MAP) Pulse Ox O2 Delivery O2 Flow Rate FiO2 05/29/22 09:39 66 131/88 (102) Baseline EKG: Baseline EKG: NSR Summary: After explaining the procedure and details to the patient, he signed the consent and was brought to the stress nuclear laboratory. Patient exercised on standard Nagi protocol, EKG, heart rate and blood pressure were monitored continuously, resting and stress doses of radio tracer were injected, imaging was acquired and reviewed in the short axis, horizontal long axis and vertical long axis views Patient was able to exercise for a total of 7 minutes on Nagi protocol, METs 8.5 Maximum heart rate 138 Maximum blood pressure 227/74 Stress EKG, Minimal nondiagnostic changes Recovery EKG, Return to baseline TID: 0.92 SSS: 3 SDS: 1 EF: 57 Conclusion: 1. Fair exercise tolerance for 7 minutes on standard Nagi protocol, 8.5 METS achieving 87% of maximum expected heart rate 2. Appropriate heart rate response to exercise with hypertensive response to exercise with peak blood pressure 227/74 return to baseline during recovery 3. Nondiagnostic EKG changes with exercise return to baseline during recovery 4. Diaphragmatic attenuation with typical male pattern with no significant ischemia or infarction on SPECT images 5. Normal left ventricular size, ejection fraction 57% DEBORAH BOURGEOIS MD May 29, 2022 12:19
== END ==
LOC: CARD 08:15
PROVIDERS: ATTEND Physician Assistant
DX: I10 Essential (primary) hypertension (principal); I25.10 Atherosclerotic heart disease of native coronary artery without angina pectoris
CPT/HCPCS: 78452; 93017; A9502